=== PATIENT | female | born 1955 | race Two or more races ===

== ENCOUNTER → 2016-07-25 | Outpatient (CLI) | payer OTHER ==
[~2016-07-25] MED LIST: ACETAMINOPHEN PO; ACID REDUCER 1150 MG PO; ASPIRIN81 M2 PO; BENZONATATE PO; FLEXERIL PO; FLONASE 0.05% N16 G1; HYDROXYZINE HCL10 MG PO; IBUPROFEN800 MG PO; KLONOPIN0.5 MG PO; METHOCARBAMOL500 MG PO; MIRALAX17 GM PO; MOBIC15 MG PO; NO MEDICATIONS; OMEPRAZOLE40 MG PO; PAROXETINE HCL40 M1 PO; PAXIL PO; PERCOCET 5/321 UDTAB PO; SIMVASTATIN10 MG PO; ZOFRAN ODT4 MG PO
--- NOTE | ~2016-07-25 | CR170 ---
[facility] A Service of [facility] & [facility] RADIOLOGY TEXT RESULTS PATIENT: FREEDOM WALTON LOCATION: [facility] : 59 UNIT #: [id number] AGE: [address]: KAREEM THOMSON APRN SEX: F ORDER DR: [id number] [facility] [address] [place], [place] [address] [id number] O MR#: [id number] Acc #: [id number] NAME: FREEDOM WALTON : 1955 SEX: F STUDY DATE/TIME: 07/25/2016 15:14 UNIT: [facility] ROOM: STUDY DESCRIPTION: CR Knee 2 Views Rt Attending Physician: Kareem Thomson A.P.R.N. Ordering Physician: Kareem Thomson A.P.R.N. Primary Care Physician: Yanira Ellison M.D. MEDICAL IMAGING REPORT This report is preliminary unless electronic signature is present EXAM 2 view right knee HISTORY Right knee pain since December 2015. Patient fell in December. FINDINGS 2 views of the right knee demonstrates minimal degenerative change of the right knee with mild spurring of the tibial spines. No fracture. No joint effusion. Bone mineralization appears normal. On the lateral view, there is a radiodensity within the anterior soft tissue just above the patella could represent a small foreign body or soft tissue contamination. IMPRESSION 1. Only minimal degenerative change of the right knee. No evidence of fracture or joint effusion. 2. Small linear densities anterior-superior soft tissues measuring about 4 mm could represent a small foreign body or soft tissue contamination. Dictated by... Yissel Monge M.D. THIS IS AN ELECTRONICALLY VERIFIED REPORT Yissel Monge M.D. at 07/26/2016 3:56 PM RON/stephy TD: 07/26/2016 07:08 JOB #: [id number] MEDICAL IMAGING REPORT Page 1 of 1 COPY
== END | disposition home or self-care (01) ==
LOC: CRAD 15:09
DX: M25.561 Pain in right knee (principal)
CPT/HCPCS: 73560